=== PATIENT | female | born 1950 | race Hispanic/Latino ===

== ENCOUNTER 2017-01-04 10:38 | Outpatient (CLI) | payer MEDICARE, OTHER ==
--- NOTE | 2017-01-04 11:20 | Mammography Report ---
BILATERAL DIGITAL DIAGNOSTIC MAMMOGRAM WITH CAD: 01/04/17 10:38:00 CLINICAL: Routine screening.Breast cancer survivor status post left partial mastectomy in 2013 and history of a right benign biopsy. . COMPARISON:01/20/16, 02/04/15 and 01/29/14 FINDINGS: The breasts are heterogeneously dense, which may obscures small masses. Stable left upper-outer postsurgical scar with benign fat necrosis and oil cyst at the scar. Right upper outer biopsy clip No new mass, architectural distortion or suspicious calcifications. IMPRESSION: No mammographic evidence of malignancy. BI-RADS CATEGORY: 2 -- Benign RECOMMENDATION: Routine mammographic screening in one year. COMMENT: Patient follow-up letters are generated via our [employer] application.
== END 2017-01-04 10:39 | disposition home or self-care (01) ==
LOC: SPVWC 10:38
PROVIDERS: ATTEND Radiology Radiation Oncology
DX: N64.1 Fat necrosis of breast (principal); Z85.3 Personal history of malignant neoplasm of breast; Z90.12 Acquired absence of left breast and nipple
CPT/HCPCS: 77066; G0204

== ENCOUNTER 2018-02-05 11:58 | Outpatient (CLI) | payer MEDICARE, OTHER ==
--- NOTE | 2018-02-06 14:58 | Mammography Report ---
BILATERAL DIGITAL SCREENING MAMMOGRAM WITH CAD: 02/05/18 11:58:00 CLINICAL: Routine screening.Breast cancer survivor status post left partial mastectomy in 2012 and history of a right benign biopsy. COMPARISON:01/04/17 FINDINGS: The breasts are heterogeneously dense, which may obscure small masses. Stable left upper outer postsurgical scar with surgical clips and benign fat necrosis at the scar . A right outer biopsy clip. No mass, suspicious architectural distortion or suspicious calcifications. IMPRESSION: No mammographic evidence of malignancy. BI-RADS CATEGORY: 2 -- Benign RECOMMENDATION: Routine mammographic screening in one year. COMMENT: Patient follow-up letters are generated via our [employer] application.
== END 2018-02-05 11:59 | disposition home or self-care (01) ==
LOC: SPVWC 11:58
PROVIDERS: ATTEND Internal Medicine Hematology & Oncology
DX: Z12.31 Encounter for screening mammogram for malignant neoplasm of breast (principal)
CPT/HCPCS: 77067

== ENCOUNTER 2019-02-06 09:52 | Outpatient (CLI) | payer MEDICARE, OTHER ==
--- NOTE | 2019-02-06 14:27 | Mammography Report ---
BILATERAL DIGITAL SCREENING MAMMOGRAM WITH CAD INDICATION: Routine screening. Breast cancer survivor status post left partial mastectomy in 2013 and history of a right benign biopsy. COMPARISONS: 02/05/2018 FINDINGS: Craniocaudal and mediolateral oblique views of both breasts were obtained using 2-D digital acquisition. In addition to standard review, the examination was analyzed for possible abnormalities using a computer-assisted detection device (iCAD). The breast tissue is heterogeneously dense, which may obscure small masses. Right upper outer parenchymal asymmetry requires additional imaging. A right upper outer biopsy clip. No architectural distortion or suspicious calcifications. The left breast is negative with stable up per outer benign postsurgical scar and benign fat necrosis at the scar. IMPRESSION: Right asymmetries requiring additional imaging. Recommend recall for right ML,rolled CC , spot magnif ication MLO and CC views and right breast ultrasound if needed. BI-RADS CATEGORY 0: INCOMPLETE - NEED ADDITIONAL IMAGING EVALUATION AND/OR PRIOR MAMMOGRAMS FOR COMP ARISON Information is entered into a reminder system for a target due date for the next mammogram. The resul ts and recommendations were sent to the patient by mail. Signer Name: Mani Vera MD Signed: 02/06/2019 2:23 PM Workstation Name: [id number]
== END 2019-02-06 09:53 | disposition home or self-care (01) ==
LOC: SPVWC 09:52
PROVIDERS: ATTEND Internal Medicine Hematology & Oncology
DX: Z12.31 Encounter for screening mammogram for malignant neoplasm of breast (principal)
CPT/HCPCS: 77067

== ENCOUNTER 2019-02-27 13:51 | Outpatient (CLI) | payer MEDICARE, OTHER ==
--- NOTE | 2019-02-28 09:37 | Ultrasound Report ---
RIGHT DIGITAL DIAGNOSTIC MAMMOGRAM 02/27/2019 RIGHT LIMITED BREAST ULTRASOUND INDICATION: Recalled for asymmetry. History of a right benign biopsy and left partial mastectomy for breast cancer. TECHNIQUE: Digital right mammographic imaging was performed. Magnification views were obtained. COMPARISON: 02/06/2019 FINDINGS: Breast Density: The breasts are heterogeneously dense, which may obscure small masses. MAMMOGRAPHIC FINDINGS: Lateral, rolled CC and spot magnification MLO and CC views were performed. Sat isfactory effacement of asymmetry and architectural distortion. No mass. ULTRASOUND FINDINGS: Ultrasound of the upper outer right breast was performed and demonstrated no mas s or suspicious shadowing. Subtle architectural distortion correlates with the area of previous biops y. IMPRESSION: Benign postbiopsy changes and no suspicious finding. Recommend routine mammographic scree vincent. Follow up recommendation: Routine yearly BI-RADS Category 2: Benign. A "normal" or negative report should not discourage follow up or biopsy of a clinically significant f inding. A written summary of these findings will be mailed to the patient. The patient will be entered into a mammography reporting system which will generate a reminder letter for the patient's next appointmen t at the appropriate interval. According to the [employer], yearly mammograms are recommended starting at age 40 and continuing as long as a woman is in good health. Breast MRI is recommended for women with an hay roximately 20-25% or greater lifetime risk of breast cancer, including women with a strong family his tory of breast or ovarian cancer and women who have been treated for Hodgkin's disease. Signer Name: Mani Vera MD Signed: 02/28/2019 9:33 AM Workstation Name: [id number]
== END 2019-02-27 13:52 | disposition home or self-care (01) ==
LOC: SPVWC 13:51
PROVIDERS: ATTEND Internal Medicine Hematology & Oncology
DX: C50.912 Malignant neoplasm of unspecified site of left female breast (principal)

== ENCOUNTER 2020-02-13 09:05 | Outpatient (CLI) | payer MEDICARE, OTHER ==
--- NOTE | 2020-02-13 11:24 | Mammography Report ---
DIGITAL SCREENING MAMMOGRAM WITH CAD, 02/13/2020 INDICATION: Routine screening mammography. TECHNIQUE: Digital bilateral 2D mammography was obtained in the craniocaudal and mediolateral obliq ue projections. This examination was interpreted with the benefit of Computer-Aided Detection analysi s. COMPARISON: 02/27/2019, 10/07/2018, 02/05/2018 FINDINGS: Breast Density: There are scattered areas of fibroglandular density. There is no evidence of dominant mass, suspicious calcifications or architectural distortion in eithe r breast. Single bilateral postoperative changes and benign calcifications. IMPRESSION: Follow up recommendation: Routine yearly BI-RADS Category 2: Benign. A "normal" or negative report should not discourage follow up or biopsy of a clinically significant f inding. A written summary of these findings will be mailed to the patient. The patient will be entered into a mammography reporting system which will generate a reminder letter for the patient's next appointmen t at the appropriate interval. The [employer] recommends yearly mammograms starting at age 40 and continuing as l zelda as a woman is in good health. Breast MRI is recommended for women with an approximate 20-25% or greater lifetime risk of breast cancer, including women with a strong family history of breast or ova lucille cancer or who have been treated for Hodgkin's disease. Signer Name: Robbin Aragon MD Signed: 02/13/2020 11:20 AM Workstation Name: [id number]
== END 2020-02-13 09:06 | disposition home or self-care (01) ==
LOC: SPVWC 09:05
PROVIDERS: ATTEND Internal Medicine Hematology & Oncology
DX: Z12.31 Encounter for screening mammogram for malignant neoplasm of breast (principal); N64.89 Other specified disorders of breast
CPT/HCPCS: 77067

== ENCOUNTER 2021-03-18 09:28 | Outpatient (CLI) | payer MEDICARE ==
--- NOTE | 2021-03-18 11:12 | Mammography Report ---
DIGITAL SCREENING MAMMOGRAM WITH CAD, 03/18/2021 CLINICAL INFORMATION / INDICATION: Routine screening mammography. SCREENING MAMMO TECHNIQUE: Digital bilateral 2D mammography was obtained in the craniocaudal and mediolateral obliqu e projections. This examination was interpreted with the benefit of Computer-Aided Detection analysis . COMPARISON: 01/29/2014 through 02/13/2020. FINDINGS: Breast Density: The breasts are heterogeneously dense, which may obscure small masses. No dominant mass, suspicious calcifications, or architectural distortion in either breast. Postlumpectomy/radiation changes in the left upper outer quadrant are again identified. Benign-appear ing calcifications in the left breast are again identified. Right breast scarring was also present pr eviously. There are bilateral surgical clips. IMPRESSION: No mammographic evidence of malignancy. Follow up recommendation: Routine yearly BI-RADS Category 2: Benign. A "normal" or negative report should not discourage follow up or biopsy of a clinically significant f inding. A written summary of these findings will be mailed to the patient. The patient will be entered into a mammography reporting system which will generate a reminder letter for the patient's next appointmen t at the appropriate interval. The [employer] recommends yearly mammograms starting at age 40 and continuing as l zelda as a woman is in good health. Breast MRI is recommended for women with an approximate 20-25% or greater lifetime risk of breast cancer, including women with a strong family history of breast or ova lucille cancer or who have been treated for Hodgkin's disease. Signer Name: Everardo Kenny MD Signed: 03/18/2021 11:08 AM Workstation Name: [id number]
== END 2021-03-18 09:29 | disposition home or self-care (01) ==
LOC: SPVWC 09:28
PROVIDERS: ATTEND Internal Medicine Hematology & Oncology
DX: Z12.31 Encounter for screening mammogram for malignant neoplasm of breast (principal); N64.89 Other specified disorders of breast
CPT/HCPCS: 77067